=== PATIENT | male | born 1945 | race Caucasian/White ===

== ENCOUNTER → 2017-03-27 | Outpatient (CLI) | payer MEDICARE, OTHER ==
--- NOTE | 2017-03-27 08:31 | RAD ---
Indication: Cough and congestion. Time of exam 0824 hours. No prior studies are available for comparison. FINDINGS: The heart size is normal. The lungs are clear. No pleural effusion or pneumothorax is identified. The pulmonary vascularity is normal. IMPRESSION: No acute abnormality detected.
== END | disposition home or self-care (01) ==
LOC: PMG 08:02
PROVIDERS: ATTEND Physician Assistant Medical
DX: R05 Cough (principal); R09.89 Other specified symptoms and signs involving the circulatory and respiratory systems
CPT/HCPCS: 71020

== ENCOUNTER → 2017-05-17 | Outpatient (CLI) | payer MEDICARE, OTHER ==
--- NOTE | 2017-05-17 12:38 | RAD ---
Carotid ultrasound, 05/17/2017: History: Carotid stenosis Duplex evaluation of the carotid arteries in neck was performed including grayscale, color-flow and spectral Doppler analysis. There is mild intimal thickening and smooth plaquing at both carotid bifurcations. Minimal plaque calcification is noted. The peak systolic velocity in the right internal carotid artery is 134 cm/s with an end-diastolic velocity of 31 cm/s. The internal carotid to common carotid artery ratio is 1.0. These Doppler findings suggest narrowing in the 0-50% diameter range. The peak systolic velocity in left internal carotid artery is 90 cm/s with an end-diastolic velocity of 29 cm/s. The internal carotid to common carotid artery ratio on the left is 0.8. These Doppler findings also suggest narrowing in the 0-50% diameter range. Antegrade flow is present in both vertebral arteries in the neck. IMPRESSION: Mild atherosclerotic plaquing at both carotid bifurcations with underlying luminal narrowing in the 0-50% diameter range bilaterally. Note: Stenosis calculations for CTA, MRA and conventional angiography are based upon determination of the distal ICA diameter in accordance with the NASCET methodology. Stenosis calculations for Doppler studies are derived from validated velocity criteria which are known to correlate with NASCET methodology of determining stenosis.
== END | disposition home or self-care (01) ==
LOC: US 09:10
PROVIDERS: ATTEND Internal Medicine Cardiovascular Disease
DX: I65.23 Occlusion and stenosis of bilateral carotid arteries (principal); E78.00 Pure hypercholesterolemia, unspecified
CPT/HCPCS: 93880

== ENCOUNTER → 2019-04-14 | Outpatient (CLI) | payer MEDICARE, OTHER ==
[2019-04-14 10:34] LABS: ALBUMIN 4.1 g/dL (3.4-5.0); ALBUMIN/GLOBULIN RATIO 1.4 (1.0-1.7); CALCIUM 9.1 mg/dL (8.5-10.1); CREATININE 0.8 mg/dL (0.7-1.3); GFR 95.3; MAGNESIUM 2.1 mg/dL (1.8-2.4); POTASSIUM 4.4 mmol/L (3.5-5.1); TOTAL BILIRUBIN 1.4 mg/dL (0.2-1.0); TOTAL PROTEIN 7.1 g/dL (6.4-8.2)
== END | disposition home or self-care (01) ==
LOC: LAB 09:19
PROVIDERS: ATTEND Internal Medicine Cardiovascular Disease
DX: I49.3 Ventricular premature depolarization (principal); E78.00 Pure hypercholesterolemia, unspecified
CPT/HCPCS: 36415; 80053; 80061; 83735

== ENCOUNTER → 2019-07-21 | Outpatient (CLI) | payer MEDICARE, OTHER ==
[2019-07-21 11:19] LABS: ALBUMIN 4.1 g/dL (3.4-5.0); DIRECT BILIRUBIN 0.2 mg/dL (0.0-0.2); TOTAL BILIRUBIN 1.3 mg/dL (0.2-1.0)
== END | disposition home or self-care (01) ==
LOC: LAB 10:34
PROVIDERS: ATTEND Internal Medicine Cardiovascular Disease
DX: E78.00 Pure hypercholesterolemia, unspecified (principal)
CPT/HCPCS: 36415; 80061; 80076

== ENCOUNTER → 2019-11-21 | Outpatient (CLI) | payer MEDICARE, OTHER ==
[2019-11-21 10:30] LABS: ALBUMIN 4.1 g/dL (3.4-5.0); ALBUMIN/GLOBULIN RATIO 1.4 (1.0-1.7); CALCIUM 9.2 mg/dL (8.5-10.1); CREATININE 0.9 mg/dL (0.7-1.3); GFR 82.9; POTASSIUM 4.5 mmol/L (3.5-5.1); TOTAL BILIRUBIN 1.3 mg/dL (0.2-1.0); TOTAL PROTEIN 7.1 g/dL (6.4-8.2)
== END | disposition home or self-care (01) ==
LOC: LAB 08:47
PROVIDERS: ATTEND Internal Medicine Cardiovascular Disease
DX: I35.0 Nonrheumatic aortic (valve) stenosis (principal); E78.00 Pure hypercholesterolemia, unspecified
CPT/HCPCS: 80053; 80061; 83695

== ENCOUNTER 2020-05-03 17:30 | Inpatient (IN) | payer MEDICARE, OTHER ==
[~2020-05-03] VITALS: Ht 185.4 cm; Wt 87.0 kg
[2020-05-03] MEDS ORDERED: TAMS0.4C97 PO (18:26)
[2020-05-03] MEDS ORDERED: MULT-245 PO (18:26)
[2020-05-03] MEDS ORDERED: CHOL200044 PO (18:26)
[2020-05-03] MEDS ORDERED: ATOR40TA PO (18:26)
[2020-05-03] MEDS ORDERED: ASPI-630 PO (18:26)
[2020-05-03] MEDS ORDERED: DILT180T7 PO (18:26)
[2020-05-03] MEDS ORDERED: CYAN500T17 PO (18:26)
[2020-05-03] MEDS ORDERED: CARV6.25 PO (18:26)
[2020-05-03] MEDS ORDERED: CYCL-331 PO (18:26)
[2020-05-03] MEDS ORDERED: PSYL0.5215 PO (18:26)
[2020-05-03] MEDS ORDERED: FINA5TAB PO (18:26)
[2020-05-03 18:31] VITALS: BP 115/71
[2020-05-03 20:18] LABS: BASO # 0.1 x10^3/uL (0.0-0.2); BASO % 1 % (0-3); EOS # 0.1 x10^3/uL (0.0-0.7); EOS % 1 % (0-3); HEMATOCRIT 40.9 % (39.0-53.0); HEMOGLOBIN 13.7 g/dL (13.0-17.5); LYMPH % 8 % (24-48); MEAN CORPUSCULAR HEMOGLOBIN 30 pg (25-35); MEAN CORPUSCULAR HGB CONC 34 g/dL (31-37); MEAN CORPUSCULAR VOLUME 91 fL (79-100); MONO # 0.7 x10^3/uL (0.0-1.1); MONO % 5 % (0-9); NEUT # 10.9 x10^3uL (1.8-7.7); NEUT % 85 % (31-73); PLATELET COUNT 474 x10^3/uL (140-400); RED CELL DISTRIBUTION WIDTH 12.6 % (11.5-14.5); WHITE BLOOD COUNT 12.8 x10^3/uL (4.0-11.0)
[2020-05-03 20:34] LABS: ALBUMIN 2.7 g/dL (3.4-5.0); ALBUMIN/GLOBULIN RATIO 0.6 (1.0-1.7); CALCIUM 8.9 mg/dL (8.5-10.1); CREATININE 0.9 mg/dL (0.7-1.3); GFR 82.9; POTASSIUM 4.1 mmol/L (3.5-5.1); TOTAL BILIRUBIN 0.8 mg/dL (0.2-1.0)
[2020-05-03] MEDS: IPRATROPIUM/ALBUTEROL 20/100mcg/INH INHALER. INH SCH (20:42)
[2020-05-03 20:43] LABS: INFLUENZA A PATIENT NEGATIVE (NEGATIVE); INFLUENZA B PATIENT NEGATIVE (NEGATIVE)
[2020-05-03] MEDS: DEXAMETHASONE SOD PHOS 10 MG/ML VIAL. IV SCH (20:43)
[2020-05-03] MEDS: AZITHROMYCIN 500 MG in IV NORMAL SALINE 250ML 250 ML IV SCH (21:18)
[2020-05-03 22:40] VITALS: BP 121/70
[2020-05-04 03:05] VITALS: BP 128/78
[2020-05-04 05:50] VITALS: BP 120/73
[2020-05-04] MEDS: DEXAMETHASONE SOD PHOS 10 MG/ML VIAL. IV SCH ×2 (09:34→20:30)
[2020-05-04] MEDS: IPRATROPIUM/ALBUTEROL 20/100mcg/INH INHALER. INH SCH ×4 (09:34→20:00)
--- NOTE | 2020-05-04 09:37 | HP ---
ADMIT DATE: ATTENDING PHYSICIAN: Dr. Cortes. CHIEF COMPLAINT: Shortness of breath. HISTORY OF PRESENT ILLNESS: The patient is a 74-year-old gentleman, very active, comes in with weakness and shortness of breath. He was tested positive for coronavirus 11 days ago. Chest x-ray demonstrated chronic interstitial changes as well as new diffuse interstitial ground glass appearance in both bases. The patient is therefore admitted with suspected coronavirus pneumonia. Influenza A and B has been ordered too. This gentleman has been sick for the last 4 days. Not much appetite. No fevers, chills, cough. Just malaise, some myalgias, poor appetite. He had some dyspnea. No cough. However, by the time I saw him, his room air saturations were quite adequate. PAST MEDICAL HISTORY: Significant for gallbladder surgery. He had essential hypertension, hyperlipidemia and some prostatism. CURRENT MEDICATIONS: Include the following: Aspirin, Lipitor, Coreg, vitamin D3, B12, cyclobenzaprine, diltiazem 180, Proscar, multivitamin, and Flomax. ALLERGIES: He has no known drug allergies. SOCIAL HISTORY: Nonsmoker, nondrinker. SOCIAL HISTORY: He is retired. FAMILY HISTORY: Mom lived at age 97. Dad at age 71 of complications of drug-induced cirrhosis of liver from rheumatoid arthritis history. He is . 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 REVIEW OF SYSTEMS: Significant for the issues that brought him here. He has been fairly active. He was feeling a little better by the time I saw him the next day. All other systems reviewed and determined to be negative. PHYSICAL EXAMINATION: GENERAL: When I saw him, this is a pleasant, middle-aged gentleman. INITIAL VITAL SIGNS: Showed a blood pressure 120/73, pulse 88 and regular, temperature 97.9 degrees Fahrenheit, and his oxygen saturations were 94% on room air. HEENT: Head is without trauma. Pupils are reactive. Sclerae nonicteric. Oropharynx is clear. NECK: Supple, no bruits identified. LUNGS: Coarse rhonchi at the bases. CARDIOVASCULAR: Showed regular heart tones. No gallops. ABDOMEN: Soft, no guarding or rebound tenderness. EXTREMITIES: Showed no cyanosis or edema. NEUROLOGIC: Focally intact. Speech is fluent. 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 SKIN: Warm and dry. IMAGING: Chest x-ray as noted. PERTINENT LABORATORY STUDIES: The hemoglobin is 13.7 g/dL with a white count of 12,800. Electrolytes, BUN and creatinine all within normal range. Transaminases are slightly elevated with ALT of 221, AST of 64, bilirubin is normal. Nonfasting blood sugar 123 mg/dL, creatinine is 0.9 mg/dL. ASSESSMENT: 1. A 74-year-old gentleman with bilateral atypical pneumonia, both bases. 2. Interstitial lung disease. 3. Probable COVID-19 pneumonia infection. 4. Essential hypertension. 5. Hyperlipidemia. PLAN: 1. Admit to the inpatient unit. 2. Supplemental oxygen as needed. 3. Empiric intravenous antibiotics, Rocephin and Zithromax have been ordered. 4. Empiric Decadron. 5. Diet as tolerated. 6. Influenza A and B swab. 7. Repeat coronavirus swab. SRINIVAS CORTES MD DR: GEOVANNA/rene JOB#: [id number] / [id number] TAMMY Dias
[2020-05-04 10:51] VITALS: BP 128/77
[2020-05-04] MEDS ORDERED: LORA-627 PO (13:35)
[2020-05-04] MEDS ORDERED: ACET325T9 PO (13:35)
[2020-05-04] MEDS ORDERED: GUAI-108 PO (13:35)
[2020-05-04] MEDS: PSEUDOEPHEDRINE ER 120 MG TABLET.ER. PO SCH ×2 (14:00→20:32)
[2020-05-04] MEDS: ASPIRIN CHEWABLE 81 MG TABLET. PO SCH (14:22)
[2020-05-04] MEDS: MULTIVITAMIN with MINERAL TABLET. PO SCH (14:22)
[2020-05-04] MEDS: CETIRIZINE HCL 10 MG TABLET PO SCH (14:22)
[2020-05-04] MEDS: guaiFENesin DM 600/30MG 1 TAB TAB.ER.12H PO PRN (14:23)
[2020-05-04] MEDS: ACETAMINOPHEN 325 MG TABLET PO PRN (14:23)
[2020-05-04] MEDS: CHOLECALCIFEROL (VITAMIN D3) 1,000 UNIT TABLET PO SCH (14:23)
[2020-05-04] MEDS: CYANOCOBALAMIN (VITAMIN B-12) 1,000 MCG TABLET. PO SCH (14:23)
[2020-05-04 15:51] VITALS: BP 124/69
[2020-05-04 20:25] VITALS: BP 133/78
[2020-05-04] MEDS: FINASTERIDE 5 MG TABLET. PO SCH (20:30)
[2020-05-04] MEDS: AZITHROMYCIN 500 MG in IV NORMAL SALINE 250ML 250 ML IV SCH (20:30)
[2020-05-04] MEDS: ATORVASTATIN CALCIUM 20 MG TABLET PO SCH (20:30)
[2020-05-04] MEDS: TAMSULOSIN 0.4 MG CAP.ER.24H. PO SCH (20:30)
[2020-05-04] MEDS: PSYLLIUM SEED (WITH SUGAR) PACKET. PO SCH (20:32)
[2020-05-04 22:30] VITALS: BP 115/74
[2020-05-05 00:14] VITALS: BP 115/74
[2020-05-05 06:04] VITALS: BP 122/74
[2020-05-05 06:16] LABS: BASO % 0 % (0-3); EOS % 0 % (0-3); HEMATOCRIT 38.3 % (39.0-53.0); LYMPH # 1.1 x10^3/uL (1.0-4.8); LYMPH % 7 % (24-48); MEAN CORPUSCULAR HEMOGLOBIN 30 pg (25-35); MEAN CORPUSCULAR HGB CONC 34 g/dL (31-37); MEAN CORPUSCULAR VOLUME 89 fL (79-100); MONO # 0.5 x10^3/uL (0.0-1.1); MONO % 3 % (0-9); NEUT % 90 % (31-73); PLATELET COUNT 407 x10^3/uL (140-400); RED BLOOD COUNT 4.28 x10^6/uL (4.30-5.70); RED CELL DISTRIBUTION WIDTH 13.2 % (11.5-14.5); WHITE BLOOD COUNT 16.6 x10^3/uL (4.0-11.0)
[2020-05-05 06:32] LABS: ALBUMIN 2.7 g/dL (3.4-5.0); ALBUMIN/GLOBULIN RATIO 0.7 (1.0-1.7); CALCIUM 8.8 mg/dL (8.5-10.1); CREATININE 0.9 mg/dL (0.7-1.3); GFR 82.9; POTASSIUM 4.5 mmol/L (3.5-5.1); TOTAL BILIRUBIN 0.5 mg/dL (0.2-1.0); TOTAL PROTEIN 6.8 g/dL (6.4-8.2)
[2020-05-05 06:48] LABS: % LYMPHS 5 % (24-48); % MONOS 4 % (0-10); % SEGS 91 % (35-66)
[2020-05-05 06:51] LABS: PLT ESTIMATE INCREASED (ADEQUATE); TOXIC GRANULATION PRESENT; TOXIC VACUOLATION PRESENT
--- NOTE | 2020-05-05 07:10 | RAD ---
XR CHEST 1V Clinical Indication: Reason: increased SOA covid related / Comparison: Two-view chest, 2 days ago. Findings: The cardiomediastinal silhouette is normal. Relatively diffuse interstitial and alveolar opacities in the lungs are unchanged. There is no pneumothorax. No pleural effusion is appreciated. No acute bone abnormality. IMPRESSION: Bilateral infiltrates are unchanged. Electronically signed by: Adan Hood MD (05/05/2020 7:08 AM) [facility]
[2020-05-05] MEDS: CETIRIZINE HCL 10 MG TABLET PO SCH (08:31)
[2020-05-05] MEDS: IPRATROPIUM/ALBUTEROL 20/100mcg/INH INHALER. INH SCH ×4 (08:31→20:00)
[2020-05-05] MEDS: DEXAMETHASONE SOD PHOS 10 MG/ML VIAL. IV SCH ×2 (08:31→20:53)
[2020-05-05] MEDS: CHOLECALCIFEROL (VITAMIN D3) 1,000 UNIT TABLET PO SCH (08:31)
[2020-05-05] MEDS: CYANOCOBALAMIN (VITAMIN B-12) 1,000 MCG TABLET. PO SCH (08:32)
[2020-05-05] MEDS: PSYLLIUM SEED (WITH SUGAR) PACKET. PO SCH ×2 (08:32→20:52)
[2020-05-05] MEDS: ASPIRIN CHEWABLE 81 MG TABLET. PO SCH (08:32)
[2020-05-05] MEDS: MULTIVITAMIN with MINERAL TABLET. PO SCH (08:32)
[2020-05-05] MEDS: PSEUDOEPHEDRINE ER 120 MG TABLET.ER. PO SCH ×2 (08:33→20:53)
[2020-05-05] MEDS: LACTOBACILLUS RHAMNOSUS GG 1 CAPSULE. PO SCH ×2 (09:00→20:52)
[2020-05-05 11:00] VITALS: BP 146/79
[2020-05-05 17:12] VITALS: BP 138/77
--- NOTE | 2020-05-05 17:44 | PN ---
DATE: 05/05/2020 SUBJECTIVE: The patient is a 74-year-old male patient who was admitted with shortness of breath. He apparently tested positive for coronavirus 12 days ago and his x-ray demonstrated chronic interstitial changes as well as new diffuse interstitial ground glass appearance in both bases and therefore was admitted for suspected coronavirus pneumonia, influenza A and B has been ordered too. Apparently, his influenza A and B were negative and his coronavirus by PCR was not detectable. He was started on IV antibiotic in the form of Rocephin and Zithromax as well as dexamethasone and when I saw him today, he was continued to complain of shortness of breath. He was unable to finish sentences and has to pause for every now and then and clearly short of breath, has also cough with whitish sputum with streaks of blood. Denied any chest pain. PHYSICAL EXAMINATION: GENERAL: When I saw him this afternoon, he looked well, slightly pale, no jaundice, cyanosis or thyromegaly. No jugular venous distention or limb edema. VITAL SIGNS: Her heart rate was 107, blood pressure was 146/79, temperature was 99.4, respiratory rate 20, and oxygen saturation was 94% on room air. HEAD, EYES, EARS, NOSE AND THROAT: Showed normocephalic, atraumatic. NECK: Supple. HEART: Normal first and second heart sounds with harsh ejection systolic murmur best heard in the second right intercostal space, radiating to both carotids. CHEST: Shows central trachea, equal bilateral expansion, air entry, vesicular breath sounds. I could not really appreciate any crepitation or rhonchi. ABDOMEN: Slightly distended, soft, nontender. NEUROLOGIC: He is awake, alert, responding appropriately. All cranial nerves are intact. He moves extremities without difficulty, ambulates without assistance or assistive devices. His intake over the last 24 hours was 940, no output was recorded. LABORATORY DATA: His lab work this morning showed white cell count of 16,600, hemoglobin 13, hematocrit 38, MCV 89 and platelet count of 407,000 with a manual differential showed 90% polymorphs, 7% lymphocytes and 3% monocytes. Serum sodium was 137, potassium 4.5, chloride 104, bicarbonate 24, anion gap of 9, BUN 17, creatinine 0.9, estimated GFR was 83 mL per minute. His glucose was 152, calcium was 8.8. Total bilirubin and alkaline phosphatase is normal. AST, ALT slightly elevated, but trending down. His total protein was 6.8, albumin was 2.7. His chest x-ray showed the cardiomediastinal silhouette is normal relatively diffuse interstitial and alveolar opacities in lungs that are unchanged. There is no pneumothorax, no pleural effusion is appreciated, no acute bony abnormality. ASSESSMENT: 1. COVID pneumonia. 2. Bilateral atypical pneumonia. 3. Chronic interstitial lung disease. 4. Hypertension. 5. Hyperlipidemia. PLAN: To continue with IV antibiotic in the form of Rocephin and Zithromax, continue with Decadron. We will obviously start him on oxygen supplementation as needed. Meanwhile, we will continue with his tamsulosin and finasteride for benign prostatic hypertrophy and diltiazem for hypertension. The patient is known to have aortic valve disease followed by Dr. Gardner. The patient seems to be short of breath. I will repeat his lab works including a D-dimer and BMP. 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 The patient does not seem to be hypoxic at rest, but he definitely has short of breath more than usual according to him, it is clearly he is unable to finish sentences, which according to him this not his usual state of health. RADHA OLIVEROS MD DR: BOLA/rene JOB#: [id number] / [id number]
[2020-05-05 20:40] VITALS: BP 138/75
[2020-05-05] MEDS: TAMSULOSIN 0.4 MG CAP.ER.24H. PO SCH (20:52)
[2020-05-05] MEDS: FINASTERIDE 5 MG TABLET. PO SCH (20:52)
[2020-05-05] MEDS: ATORVASTATIN CALCIUM 20 MG TABLET PO SCH (20:52)
[2020-05-05] MEDS: ACETAMINOPHEN 325 MG TABLET PO PRN (20:53)
[2020-05-05] MEDS: AZITHROMYCIN 500 MG in IV NORMAL SALINE 250ML 250 ML IV SCH (22:15)
[2020-05-05] MEDS: diphenhydrAMINE HCL 25 MG CAPSULE PO PRN (23:30)
[2020-05-06 06:13] VITALS: BP 127/68
[2020-05-06 06:49] LABS: ALBUMIN 2.6 g/dL (3.4-5.0); ALBUMIN/GLOBULIN RATIO 0.7 (1.0-1.7); CALCIUM 8.7 mg/dL (8.5-10.1); CREATININE 0.9 mg/dL (0.7-1.3); GFR 82.9; POTASSIUM 4.8 mmol/L (3.5-5.1); TOTAL BILIRUBIN 0.5 mg/dL (0.2-1.0); TOTAL PROTEIN 6.4 g/dL (6.4-8.2)
[2020-05-06] MEDS: IPRATROPIUM/ALBUTEROL 20/100mcg/INH INHALER. INH SCH ×4 (08:00→20:00)
--- NOTE | 2020-05-06 08:30 | PDOC2 ---
CARDIAC CONSULT DATE OF CONSULT DOS: DATE: 05/06/20 TIME: 08:23 REASON FOR CONSULT Reason for Consult Chronic CHF REFERRING PHYSICIAN Referring Physician Dr. Shook SOURCE Source: Chart review, Patient HPI History of Present Illness This is a 74 yo male who presented secondary to weakness, shortness of breath and elevated heart rate. Patient tested positives for COVID 11 days prior to arrival. He has been more weak and decreased appetite for the last 4 days. Also having some myalgias and shortness of breath. Does have a history of atrial stenosis and "irregular heart beat", which prompted this consult. Denies any history of AFIB and reports he has "been checked for that". Follows closely with Dr. Gardner, [facility]. Reports having echocardiogram this past March. He denies any chest pain, palpitations, diaphoresis, or nausea/v omiting. Reports breathing has improved and he is feeling better since admission. PAST MEDICAL HISTORY Cardiovascular: HTN, aortic stenosis Renal/: Other (urinary retention ) PAST SURGICAL HISTORY Past Surgical History: No pertinent history FAMILY HISTORY Family History: Hypertension, Other (renal disease ) SOCIAL HISTORY Smoke: No ALCOHOL: none Drugs: None Lives: with Family CURRENT MEDICATIONS Current Medications Current Medications Albuterol/ Ipratropium (Combivent Respimat 20-100 Mcg) 1 puff RTQID INH Last administered on 05/05/20at 20:00; Start 05/03/20 at 20:00 Ceftriaxone Sodium 1 gm/ Sodium Chloride 50 ml @ 100 mls/hr Q24H IV Last administered on 05/05/20at 20:52; Start 05/03/20 at 20:00 Azithromycin 500 mg/Sodium Chloride 250 ml @ 250 mls/hr Q24H IV Last administered on 05/05/20at 22:15; Start 05/03/20 at 21:00 Dexamethasone Sodium Phosphate (Decadron) 6 mg BID IV Last administered on 05/05/20at 20:53; Start 05/03/20 at 21:00 Diltiazem HCl (Diltiazem 24hr Cd) 300 mg 1X ONCE PO Last administered on 05/04/20at 09:34; Start 05/04/20 at 09:00; Stop 05/04/20 at 09:09; Status DC Aspirin (Aspirin Chewable) 81 mg DAILY PO Last administered on 05/05/20at 08:32; Start 05/04/20 at 14:00 Finasteride (Proscar) 5 mg HS PO Last administered on 05/05/20 20:52; Start 05/04/20 at 21:00 Tamsulosin HCl (Flomax) 0.4 mg HS PO Last administered on 05/05/20 20:52; St art 05/04/20 at 21:00 Atorvastatin Calcium (Lipitor) 40 mg QHS PO Last administered on 05/05/20 20:52; Start 05/04/20 at 21:00 Vitamin D (Vitamin D3) 2,000 unit DAILY PO Last administered on 05/05/20 08:31; Start 05/04/20 at 14:00 Cyanocobalamin (Vitamin B-12) 500 mcg DAILY PO Last administered on 05/05/20 08:32; Start 05/04/20 at 14:00 Diltiazem HCl (Cardizem 24hr Cd) 180 mg DAILY PO Last administered on 05/05/20 08:32; Start 05/04/20 at 14:00 Multivitamins/ Calcium (Thera-M Plus) 1 tab DAILY PO Last administered on 05/05/20 08:32; Start 05/04/20 at 14:00 Psyllium Hydrophilic Mucilloid (Metamucil) 1 pkt BID PO Last administered on 05/05/20 20:52; Start 05/04/20 at 21:00 Acetaminophen (Tylenol) 1,000 mg PRN Q6HRS PRN PO PAIN Last administered on 05/05/20 20:53; Start 05/04/20 at 14:00 Guaifenesin (MUCINEX ER with DM) 1 tab PRN BID PRN PO cough and congestion Last administered on 05/04/20at 14:23; Start 05/04/20 at 14:00 Cetirizine HCl (ZyrTEC) 10 mg DAILY PO Last administered on 05/05/20 08:31; Start 05/04/20 at 14:00 Pseudoephedrine HCl (Sudafed 12-Hour) 120 mg BID PO Last administered on 05/05/20 20:53; Start 05/04/20 at 14:00 Lactobacillus Rhamnosus (Culturelle) 1 cap BID PO Last administered on 05/05/20at 20:52; Start 05/05/20 at 09:00 Diphenhydramine HCl (Benadryl) 25 mg PRN QHS PRN PO INSOMNIA Last administered on 05/05/20at 23:30; Start 05/05/20 at 21:15 Active Scripts Active Reported Mucinex Dm Er 600-30 Mg Tablet (Guaifenesin/Dextromethorphan) 1 Each Tab.er.12h 1 Tab PO PRN BID PRN 14 Days Tylenol (Acetaminophen) 325 Mg Tablet 1,000 Mg PO PRN Q6HRS PRN Claritin-D 24 Hour Tablet (Loratadine/Pseudoephedrine) 1 Each Tab.er.24h 1 Tab PO DAILY 10 Days Coreg (Carvedilol) 6.25 Mg Tablet 6.25 Mg PO BIDWMEALS Lipitor (Atorvastatin Calcium) 40 Mg Tablet 40 Mg PO QHS Aspirin 81 Mg Tab.chew 81 Mg PO DAILY D3-2000 (Cholecalciferol (Vitamin D3)) 50 Mcg Capsule 50 Mcg PO DAILY Diltiazem 24Hr ER (Diltiazem HCl) 180 Mg Tab.er.24h 180 Mg PO DAILY Metamucil (Psyllium Husk) 0.52 Gm Capsule 0.52 Gm PO BID Multi Vitamin Daily (Multivitamin) 1 Each Tablet 1 Each PO DAILY Flomax (Tamsulosin Hcl) 0.4 Mg Cap.er.24h 0.4 Mg PO DAILY Proscar (Finasteride) 5 Mg Tablet 5 Mg PO DAILY B-12 (Cyanocobalamin (Vitamin B-12)) 500 Mcg Tablet 500 Mcg PO DAILY Cyclobenzaprine Hcl 10 Mg Tablet 10 Mg PO TID PRN PRN ALLERGIES Allergies: Coded Allergies: No Known Drug Allergies (Unverified , 05/03/20) ROS Review of Systems 14 point ROS conducted with pertinent positives noted above in hPi PHYSICAL EXAM General: Alert, Oriented X3, Cooperative, No acute distress HEENT: Atraumatic, Mucous membr. moist/pink Lungs: Other (on NC) Heart: Regular rate, Other (2/6 systolic murmur ) Abdomen: Soft Extremities: Normal pulses Skin: No breakdown Neuro: Normal speech, Sensation intact Psych/Mental Status: Mental status NL, Mood NL MUSCULOSKELETAL: Osteoarthritic changes both hands VITALS Vital Signs Vital Signs Date Time Temp Pulse Resp B/P (MAP) Pulse Ox O2 Delivery O2 Flow Rate FiO2 05/06/20 06:13 97.5 87 22 127/68 (87) 86 Room Air 05/05/20 06:08 2.0 LABS LABS Laboratory Tests Test 05/05/20 05:55 05/05/20 05:59 05/05/20 13:17 05/06/20 06:01 Sodium Level 137 mmol/L (136-145) 136 mmol/L (136-145) Potassium Level 4.5 mmol/L (3.5-5.1) 4.8 mmol/L (3.5-5.1) Chloride Level 104 mmol/L (98-107) 104 mmol/L (98-107) Carbon Dioxide Level 24 mmol/L (21-32) 23 mmol/L (21-32) Anion Gap 9 (6-14) 9 (6-14) Blood Urea Nitrogen 17 mg/dL (8-26) 20 mg/dL (8-26) Creatinine 0.9 mg/dL (0.7-1.3) 0.9 mg/dL (0.7-1.3) Estimated GFR (Cockcroft-Gault) 82.9 82.9 BUN/Creatinine Ratio 19 (6-20) 22 (6-20) Glucose Level 152 mg/dL (70-99) 136 mg/dL (70-99) Calcium Level 8.8 mg/dL (8.5-10.1) 8.7 mg/dL (8.5-10.1) Total Bilirubin 0.5 mg/dL (0.2-1.0) 0.5 mg/dL (0.2-1.0) Aspartate Amino Transf (AST/SGOT) 41 U/L (15-37) 42 U/L (15-37) Alanine Aminotransferase (ALT/SGPT) 188 U/L (16-63) 187 U/L (16-63) Alkaline Phosphatase 85 U/L (46-116) 78 U/L (46-116) Total Protein 6.8 g/dL (6.4-8.2) 6.4 g/dL (6.4-8.2) Albumin 2.7 g/dL (3.4-5.0) 2.6 g/dL (3.4-5.0) Albumin/Globulin Ratio 0.7 (1.0-1.7) 0.7 (1.0-1.7) White Blood Count 16.6 x10^3/uL (4.0-11.0) Red Blood Count 4.28 x10^6/uL (4.30-5.70) Hemoglobin 13.0 g/dL (13.0-17.5) Hematocrit 38.3 % (39.0-53.0) Mean Corpuscular Volume 89 fL (79-100) Mean Corpuscular Hemoglobin 30 pg (25-35) Mean Corpuscular Hemoglobin Concent 34 g/dL (31-37) Red Cell Distribution Width 13.2 % (11.5-14.5) Platelet Count 407 x10^3/uL (140-400) Neutrophils (%) (Auto) 90 % (31-73) Lymphocytes (%) (Auto) 7 % (24-48) Monocytes (%) (Auto) 3 % (0-9) Eosinophils (%) (Auto) 0 % (0-3) Basophils (%) (Auto) 0 % (0-3) Neutrophils # (Auto) 15.0 x10^3uL (1.8-7.7) Lymphocytes # (Auto) 1.1 x10^3/uL (1.0-4.8) Monocytes # (Auto) 0.5 x10^3/uL (0.0-1.1) Eosinophils # (Auto) 0.0 x10^3/uL (0.0-0.7) Basophils # (Auto) 0.0 x10^3/uL (0.0-0.2) Segmented Neutrophils % 91 % (35-66) Lymphocytes % 5 % (24-48) Monocytes % 4 % (0-10) Toxic Granulation Present Toxic Vacuolation Present Platelet Estimate Increased (ADEQUATE) D-Dimer (Gillian) 0.69 mg/L (0.00-0.50) VY-Hos-U-Type Natriuretic Peptide 90 pg/mL (0-124) ASSESSMENT/PLAN Assessment/Plan 1. Acute respiratory failure with COVID PNA. CXR with bilateral infiltrates. NT Pro BNP 90. Doubt overt HF 2. Hypertension; controlled 3. Hyperlipidemia 4. H/o of ; Follows with Dr. Gardner with [facility] cardiology 5. H/o possible arrhythmia; unclear. Patient denies any history of AFIB. Is on Cardizem for rate control. Has been SR/ST since admission. Sinus tachycardia would be expected in the setting of COVID PNA. Presently SR. Recommendations Continue Cardizem for rate control ASA therapy Ongoing lung optimization, treatment of COVID PNA Supportive care Outpatient echo when recovered from COVID Follow up with Dr. Gardner upon discharge. LEAH PARR APRN May 06, 2020 08:30
[2020-05-06] MEDS: MULTIVITAMIN with MINERAL TABLET. PO SCH (09:00)
[2020-05-06] MEDS: ASPIRIN CHEWABLE 81 MG TABLET. PO SCH (10:06)
[2020-05-06] MEDS: CYANOCOBALAMIN (VITAMIN B-12) 1,000 MCG TABLET. PO SCH (10:07)
[2020-05-06] MEDS: CHOLECALCIFEROL (VITAMIN D3) 1,000 UNIT TABLET PO SCH (10:07)
[2020-05-06] MEDS: CETIRIZINE HCL 10 MG TABLET PO SCH (10:07)
[2020-05-06] MEDS: PSEUDOEPHEDRINE ER 120 MG TABLET.ER. PO SCH ×2 (10:08→20:47)
[2020-05-06] MEDS: DEXAMETHASONE SOD PHOS 10 MG/ML VIAL. IV SCH ×2 (10:09→20:47)
[2020-05-06] MEDS: PSYLLIUM SEED (WITH SUGAR) PACKET. PO SCH ×2 (10:11→20:47)
[2020-05-06] MEDS: LACTOBACILLUS RHAMNOSUS GG 1 CAPSULE. PO SCH ×2 (10:11→20:47)
[2020-05-06] MEDS: guaiFENesin DM 600/30MG 1 TAB TAB.ER.12H PO PRN (10:11)
[2020-05-06] MEDS: ACETAMINOPHEN 325 MG TABLET PO PRN (10:13)
[2020-05-06 10:32] VITALS: BP 127/73
--- NOTE | 2020-05-06 14:46 | RAD ---
EXAM: CHEST ONE VIEW. HISTORY: Increasing hypoxia. COMPARISON: 05/05/2020. FINDINGS: A frontal view of the chest is obtained. Bilateral peripheral predominant interstitial and airspace opacities have increased mildly since 04/10. There is no pneumothorax or pleural effusion. The heart is not enlarged. There are atheroscle rotic calcifications of the aorta. IMPRESSION: 1. Bilateral multifocal infiltrates are slightly improved since the prior study. Electronically signed by: Taylor Monzon MD (05/06/2020 2:44 PM) [id number]
[2020-05-06 15:27] VITALS: BP 122/68
--- NOTE | 2020-05-06 17:36 | PN ---
DATE: 05/06/2020 SUBJECTIVE: The patient is resting, slightly propped up in bed, in no apparent distress. He continued to have somewhat short of breath, unable to finish sentence. He also desaturates on exertion and this morning, he went to have a shower and his oxygen saturation dropped down to 88%. His cough seemed to be more productive with clear sputum. He used to have some tinged blood before. Denied any chest pain. PHYSICAL EXAMINATION: GENERAL: When I examined him, he looked well. There was no pallor, jaundice, cyanosis or thyromegaly. No jugular venous distention. No lower limb edema. VITAL SIGNS: Her heart rate was 82, blood pressure was 122/68, temperature was 97.8, respiratory rate 20, and oxygen saturation was 93% on room air. HEAD, EYES, EARS, NOTE AND THROAT: Showed normocephalic, atraumatic. NECK: Supple. HEART: Normal first and second heart sounds. No gallop or murmur. CHEST: Shows central trachea, equal bilateral expansion, air entry, vesicular sounds. I could not really appreciate any crepitation or rhonchi. ABDOMEN: Slightly distended, soft, nontender. NEUROLOGIC: He was grossly intact. His intake was 1620. No output was recorded. LABORATORY DATA: His lab work this morning showed, his serum sodium to be 136, potassium 4.8, chloride 104, bicarbonate 23, anion gap of 9, BUN 20, creatinine was 0.9, estimated GFR was 82 mL per minute. His glucose 136, calcium was 8.7. Total bilirubin and alkaline phosphatase is normal. AST, ALT slightly elevated. His beta natriuretic peptide was only 90. Total protein was 6.4, albumin was 2.6. His coronavirus PCR was positive on 04/19; however, it was undetectable on 05/03. His influenza A and B were negative. So far, all his blood cultures are negative. A repeat chest x-ray today showed that the patient has bilateral peripheral predominant interstitial and airspace opacities that have increased mildly since 05/05. There is no pneumothorax or pleural effusion. The heart is not enlarged. There is atherosclerotic calcification of the aorta. ASSESSMENT: 1. COVID pneumonia. 2. Bilateral atypical pneumonia. 3. Chronic interstitial lung disease. 4. Hypertension. 5. Hyperlipidemia. PLAN: My plan is to continue with IV antibiotic. Continue with Decadron. Continue with finasteride and tamsulosin for his benign prostatic hypertrophy, diltiazem for hypertension. 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 My plan is to arrange for him to have a CT angio of the chest. I will repeat all his lab work including CBC, CMP, D-dimer and C-reactive protein and decide on further management accordingly. 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 Whether he has chronic interstitial lung disease due to organic and nonorganic dust is something obviously difficult to know. RADHA OLIVEROS MD DR: BOLA/rene JOB#: [id number] / [id number]
[2020-05-06] MEDS ORDERED: IOHEXOL 350 MG/ML 100 ML VIAL. IV ONE (18:00)
[2020-05-06 18:37] VITALS: BP 129/75
--- NOTE | 2020-05-06 19:12 | RAD ---
CT angiogram of the chest with contrast: Reason for examination: Worsening shortness of breath and hypoxia. Helical images were obtained through the chest with intravenous administration 100 cc Omnipaque 350 u sing PE protocol. 3-D MIPS reconstruction was performed in sagittal and coronal planes. Exposure: One or more of the following individualized dose reduction techniques were utilized for thi s examination: 1. Automated exposure control 2. Adjustment of the mA and/or kV according to patient size 3. Use of iterative reconstruction technique. No abnormality seen at the thyroid gland. The trachea and mainstem bronchi show no intraluminal lesio ns. No abnormality seen at the esophagus. The thoracic aorta shows no aneurysmal dilatation or dissec tion. The heart size is normal with no pericardial effusion. A few small lymph nodes are seen in the mediastinum which are probably reactive. No pulmonary emboli are identified. The lung lang however show diffuse patchy interstitial and alveolar opacities which are predominantly peripheral location. No pleural effusions are seen. There is no pneumothorax. No acute bony abnormalities are seen. There are hypertrophic changes in the spine. There is a striated appearance to the T9 vertebral body sugges tion a hemangioma. No acute bony abnormalities are seen. There is a tiny hypodense lesion in the left lobe of the liver measuring 6 mm in size which has benig n appearance and may represent a small cyst or hemangioma. No abnormality seen at the spleen, adrenal glands or pancreas. The gallbladder is surgically absent. IMPRESSION: No evidence of pulmonary embolus. Diffuse bilateral interstitial and alveolar opacities. Pneumonia is suspected. Small 6 mm hypodense lesion in the left lobe liver which may represent a small cyst or hemangioma. Striated bone changes in the T9 vertebral body consistent with a hemangioma. Electronically signed by: Terese Grayson MD (05/06/2020 7:09 PM) [id number]
[2020-05-06] MEDS: FINASTERIDE 5 MG TABLET. PO SCH (20:47)
[2020-05-06] MEDS: TAMSULOSIN 0.4 MG CAP.ER.24H. PO SCH (20:47)
[2020-05-06] MEDS: ATORVASTATIN CALCIUM 20 MG TABLET PO SCH (20:47)
[2020-05-06] MEDS: AZITHROMYCIN 500 MG in IV NORMAL SALINE 250ML 250 ML IV SCH ×2 (21:47→21:57)
[2020-05-06 22:53] VITALS: BP 128/75
[2020-05-07 06:17] VITALS: BP 128/75
[2020-05-07 06:29] LABS: ALBUMIN 2.6 g/dL (3.4-5.0); ALBUMIN/GLOBULIN RATIO 0.7 (1.0-1.7); C REACTIVE PROTEIN 2.1 mg/L (0-3.3); CALCIUM 8.7 mg/dL (8.5-10.1); CREATININE 0.9 mg/dL (0.7-1.3); GFR 82.9; POTASSIUM 4.8 mmol/L (3.5-5.1); TOTAL BILIRUBIN 0.6 mg/dL (0.2-1.0); TOTAL PROTEIN 6.6 g/dL (6.4-8.2)
[2020-05-07 07:39] LABS: HEMATOCRIT 38.5 % (39.0-53.0); HEMOGLOBIN 12.8 g/dL (13.0-17.5); RED BLOOD COUNT 4.21 x10^6/uL (4.30-5.70); RED CELL DISTRIBUTION WIDTH 13.1 % (11.5-14.5); WHITE BLOOD COUNT 14.9 x10^3/uL (4.0-11.0)
[2020-05-07] MEDS: IPRATROPIUM/ALBUTEROL 20/100mcg/INH INHALER. INH SCH ×4 (08:38→20:00)
[2020-05-07] MEDS: PSYLLIUM SEED (WITH SUGAR) PACKET. PO SCH ×2 (08:38→21:12)
[2020-05-07] MEDS: LACTOBACILLUS RHAMNOSUS GG 1 CAPSULE. PO SCH ×2 (08:39→21:11)
[2020-05-07] MEDS: PSEUDOEPHEDRINE ER 120 MG TABLET.ER. PO SCH ×2 (08:39→21:00)
[2020-05-07] MEDS: MULTIVITAMIN with MINERAL TABLET. PO SCH (08:39)
[2020-05-07] MEDS: CETIRIZINE HCL 10 MG TABLET PO SCH (08:39)
[2020-05-07] MEDS: ASPIRIN CHEWABLE 81 MG TABLET. PO SCH (08:40)
[2020-05-07] MEDS: CHOLECALCIFEROL (VITAMIN D3) 1,000 UNIT TABLET PO SCH (08:40)
[2020-05-07] MEDS: CYANOCOBALAMIN (VITAMIN B-12) 1,000 MCG TABLET. PO SCH (08:40)
[2020-05-07] MEDS: DEXAMETHASONE SOD PHOS 10 MG/ML VIAL. IV SCH ×2 (08:41→21:11)
[2020-05-07] MEDS: guaiFENesin DM 600/30MG 1 TAB TAB.ER.12H PO PRN (08:46)
[2020-05-07 10:36] VITALS: BP 128/73
[2020-05-07 14:41] VITALS: BP 120/70
--- NOTE | 2020-05-07 18:07 | PN ---
DATE: 05/07/2020 SUBJECTIVE: The patient continues to be short of breath, unable to complete sentences and he also desaturates on exertion, but did have cough with scanty whitish sputum. Denied any chills, rigors or fever. PHYSICAL EXAMINATION: GENERAL: When I examined him, he looked well and was clearly in no apparent respiratory distress. No pallor, jaundice, cyanosis, or thyromegaly. No jugular venous distension. No lower limb edema. VITAL SIGNS: Her heart rate was 98, blood pressure was 120/70, temperature was 99.8, respiratory rate was 20, and oxygen saturation was 93% on 2 liters of oxygen. HEAD, EYES, EARS, NOSE AND THROAT: Showed normocephalic, atraumatic. NECK: Supple. HEART: Showed normal first and second heart sounds. No gallop or murmur. CHEST: Clear to auscultation. No crepitation or rhonchi. ABDOMEN: Distended, soft, nontender. NEUROLOGIC: He is awake, alert, responding appropriately. All cranial nerves are intact. He moves extremities without difficulty. His intake over the last 24 hours was 2075. LABORATORY DATA: His lab work showed a white cell count of 14,900; hemoglobin 12.8; hematocrit 38.5; MCV 91; and platelet count of 404,000. Her chemistry showed a serum sodium 137, potassium 4.8, chloride 103, bicarbonate 24, anion gap of 10, BUN 22, creatinine 0.9, estimated GFR was 83 mL per minute, his glucose 138, calcium was 8.7. Total bilirubin and alkaline phosphatase normal. AST, ALT slightly elevated, fluctuating. His total protein was 6.8, albumin was 2.6. His D-dimer is down slightly to 0.64 and his coronavirus PCR was not detectable. His influenza A and B were negative. ASSESSMENT: 1. Recent COVID pneumonia with possible lung injury. 2. Bilateral atypical pneumonia. 3. Chronic interstitial lung disease. 4. Hypertension. 5. Hyperlipidemia. PLAN: To continue with antibiotic. Continue with steroids. Continue with DVT prophylaxis. I will continue with tamsulosin and finasteride for benign prostatic hypertrophy. He has marked sinus tachycardia, probably related to his bronchodilator and pseudoephedrine. I will see if we can discontinue pseudoephedrine and see how he does without it. RADHA OLIVEROS MD DR: Ana JOB#: [id number] / [id number]
[2020-05-07 19:00] VITALS: BP 145/80
[2020-05-07] MEDS: ENOXAPARIN 40 MG/0.4 ML SYRINGE. SQ SCH (20:13)
[2020-05-07] MEDS: TAMSULOSIN 0.4 MG CAP.ER.24H. PO SCH (21:12)
[2020-05-07] MEDS: ATORVASTATIN CALCIUM 20 MG TABLET PO SCH (21:12)
[2020-05-07] MEDS: FINASTERIDE 5 MG TABLET. PO SCH (21:12)
[2020-05-07] MEDS: AZITHROMYCIN 500 MG in IV NORMAL SALINE 250ML 250 ML IV SCH (21:13)
[2020-05-07] MEDS: diphenhydrAMINE HCL 25 MG CAPSULE PO PRN (22:53)
[2020-05-07 23:30] VITALS: BP 119/74
[2020-05-08 06:48] VITALS: BP 115/69
[2020-05-08] MEDS: CETIRIZINE HCL 10 MG TABLET PO SCH (08:06)
[2020-05-08] MEDS: CYANOCOBALAMIN (VITAMIN B-12) 1,000 MCG TABLET. PO SCH (08:08)
[2020-05-08] MEDS: MULTIVITAMIN with MINERAL TABLET. PO SCH (08:08)
[2020-05-08] MEDS: CHOLECALCIFEROL (VITAMIN D3) 1,000 UNIT TABLET PO SCH (08:08)
[2020-05-08] MEDS: ASPIRIN CHEWABLE 81 MG TABLET. PO SCH (08:08)
[2020-05-08] MEDS: DEXAMETHASONE SOD PHOS 10 MG/ML VIAL. IV SCH ×2 (08:21→22:12)
[2020-05-08] MEDS: PSYLLIUM SEED (WITH SUGAR) PACKET. PO SCH ×2 (08:21→22:13)
[2020-05-08] MEDS: LACTOBACILLUS RHAMNOSUS GG 1 CAPSULE. PO SCH ×2 (08:22→22:11)
[2020-05-08] MEDS: PSEUDOEPHEDRINE ER 120 MG TABLET.ER. PO SCH (08:22)
[2020-05-08] MEDS: IPRATROPIUM/ALBUTEROL 20/100mcg/INH INHALER. INH SCH ×4 (10:29→20:00)
[2020-05-08 11:30] VITALS: BP 141/75
--- NOTE | 2020-05-08 16:29 | PN ---
DATE: 05/08/2020 SUBJECTIVE: The patient continued to complain of shortness of breath. Sometimes he ____ to finish a sentence, continued to saturate down to 82% on exertion and while on room air, noted to have cough with scanty whitish sputum. PHYSICAL EXAMINATION: GENERAL: When I examined him, he looked somewhat pale, but no jaundice, cyanosis or thyromegaly. No jugular venous distention. No limb edema. VITAL SIGNS: His heart rate was 76, blood pressure was 115/69, temperature was 97.7, respiratory rate 20, and oxygen saturation was 94% on 2 liters of oxygen. HEAD, EYES, EARS, NOSE, AND THROAT: Showed normocephalic, atraumatic. NECK: Supple. HEART: Showed normal first and second heart sounds. No gallop, rub or murmur. CHEST: Showed central trachea, equal bilateral chest expansion, air entry, vesicular sounds. No crepitation or rhonchi. ABDOMEN: Distended, soft, nontender. NEUROLOGIC: He is grossly intact. His intake over the last 24 hours was 1500, no output was recorded. LABORATORY DATA: His most recent D-dimer was 0.64, hemoglobin 13, hematocrit 39 with a white cell count 14,900 and platelets 104. His chemistry is unremarkable except slightly elevated AST, ALT. ASSESSMENT: 1. Recent COVID pneumonia with possible lung injury. 2. Bilateral atypical pneumonia. 3. Chronic interstitial lung disease. 4. Hypertension. 5. Hyperlipidemia. PLAN: To continue antibiotic. Continue with steroids. Continue with DVT prophylaxis. We will do a 6-minute walk tomorrow to qualify him for his likelihood that probably will require oxygen at least for the foreseeable future. RADHA OLIVEROS MD DR: BOLA/rene JOB#: [id number] / [id number]
[2020-05-08] MEDS: ENOXAPARIN 40 MG/0.4 ML SYRINGE. SQ SCH (18:42)
[2020-05-08 18:43] VITALS: BP 135/75
[2020-05-08] MEDS: AZITHROMYCIN 500 MG in IV NORMAL SALINE 250ML 250 ML IV SCH (21:00)
[2020-05-08] MEDS: ATORVASTATIN CALCIUM 20 MG TABLET PO SCH (22:11)
[2020-05-08] MEDS: diphenhydrAMINE HCL 25 MG CAPSULE PO PRN (22:12)
[2020-05-08] MEDS: TAMSULOSIN 0.4 MG CAP.ER.24H. PO SCH (22:12)
[2020-05-08] MEDS: FINASTERIDE 5 MG TABLET. PO SCH (22:12)
[2020-05-08 23:17] VITALS: BP 151/86
[2020-05-09 08:00] VITALS: BP 138/77
[2020-05-09 08:02] LABS: HEMATOCRIT 39.8 % (39.0-53.0); HEMOGLOBIN 13.1 g/dL (13.0-17.5); RED BLOOD COUNT 4.37 x10^6/uL (4.30-5.70); RED CELL DISTRIBUTION WIDTH 13.2 % (11.5-14.5); WHITE BLOOD COUNT 16.4 x10^3/uL (4.0-11.0)
[2020-05-09] MEDS: LACTOBACILLUS RHAMNOSUS GG 1 CAPSULE. PO SCH ×2 (08:39→21:04)
[2020-05-09] MEDS: CHOLECALCIFEROL (VITAMIN D3) 1,000 UNIT TABLET PO SCH (08:39)
[2020-05-09] MEDS: MULTIVITAMIN with MINERAL TABLET. PO SCH (08:40)
[2020-05-09] MEDS: CETIRIZINE HCL 10 MG TABLET PO SCH (08:40)
[2020-05-09] MEDS: CYANOCOBALAMIN (VITAMIN B-12) 1,000 MCG TABLET. PO SCH (08:41)
[2020-05-09] MEDS: DEXAMETHASONE SOD PHOS 10 MG/ML VIAL. IV SCH (08:41)
[2020-05-09] MEDS: PSYLLIUM SEED (WITH SUGAR) PACKET. PO SCH ×2 (08:42→21:03)
[2020-05-09] MEDS: IPRATROPIUM/ALBUTEROL 20/100mcg/INH INHALER. INH SCH ×4 (09:54→20:00)
[2020-05-09] MEDS: ASPIRIN CHEWABLE 81 MG TABLET. PO SCH (09:54)
[2020-05-09 11:00] VITALS: BP 132/79
[2020-05-09 13:46] LABS: ALBUMIN 2.7 g/dL (3.4-5.0); ALBUMIN/GLOBULIN RATIO 0.8 (1.0-1.7); CREATININE 0.9 mg/dL (0.7-1.3); GFR 82.9; TOTAL BILIRUBIN 0.8 mg/dL (0.2-1.0); TOTAL PROTEIN 6.3 g/dL (6.4-8.2)
[2020-05-09 13:47] LABS: POTASSIUM 4.5 mmol/L (3.5-5.1)
[2020-05-09 15:00] VITALS: BP 126/82
--- NOTE | 2020-05-09 16:31 | PN ---
DATE: 05/09/2020 SUBJECTIVE: The patient is resting, slightly propped up in bed, in no apparent distress. He feels slightly better today. His oxygen saturation is 95% on 2 liters of oxygen at rest. He continued to desaturate on exertion and without oxygen. OBJECTIVE: GENERAL: When I examined him, he looked well and was clearly in no apparent distress at rest, however, he continued to pause and unable to finish sentences, although he is slightly better. There was no pallor, jaundice, cyanosis or thyromegaly. No jugular venous distention. No limb edema. VITAL SIGNS: His heart rate was 80, blood pressure was 132/79, temperature was 97.1, respiratory rate 20, and oxygen saturation was 93% on 2 liters of oxygen. HEAD, EYES, EARS, NOSE AND THROAT: Normocephalic, atraumatic. NECK: Supple. HEART: Showed normal first and second heart sounds. No gallop, rub or murmur. CHEST: Clear to auscultation. No crepitation or rhonchi. ABDOMEN: Distended, soft, nontender. NEUROLOGIC: He is awake, alert, responding appropriately. All cranial nerves are intact. He ambulates without assistance or assistive devices. LABORATORY DATA: His lab work this morning showed a white cell count of 16,400, hemoglobin 13, hematocrit 39, MCV 91, and platelet count 378,000. His serum sodium was 137, potassium 4.8, chloride 103, bicarbonate 24, anion gap of 10, BUN 22, creatinine 0.9, estimated GFR was 83 mL per minute, his glucose 138, calcium was 8.7. Total bilirubin and alkaline phosphatase were normal. AST, ALT slightly elevated. His D-dimer was down further to 0.45. His coronavirus PCR was not detectable and influenza A and B were negative. His CT angio showed diffuse bilateral interstitial and alveolar opacities, pneumonia suspected. He has no evidence of pulmonary embolism. ASSESSMENT: 1. Recent COVID pneumonia with possible lung injury. 2. Bilateral atypical pneumonia. 3. Chronic interstitial lung disease. 4. Hypertension. 5. Hyperlipidemia. PLAN: I will discontinue his Zithromax. I will switch his ceftriaxone to cefdinir and dexamethasone to be given orally and I will do 6-minute walk and will be discharged home tomorrow hopefully with home oxygen. I will also arrange for him to be seen by Dr. East as an outpatient in his clinic at [facility] for followup in 2 weeks time. RADHA OLIVEROS MD DR: BOLA/rene JOB#: [id number] / [id number]
[2020-05-09] MEDS: ENOXAPARIN 40 MG/0.4 ML SYRINGE. SQ SCH (18:01)
[2020-05-09 18:10] VITALS: BP 149/86
[2020-05-09] MEDS: FINASTERIDE 5 MG TABLET. PO SCH (21:04)
[2020-05-09] MEDS: TAMSULOSIN 0.4 MG CAP.ER.24H. PO SCH (21:04)
[2020-05-09] MEDS: ATORVASTATIN CALCIUM 20 MG TABLET PO SCH (21:04)
[2020-05-09] MEDS: CEFDINIR 300 MG CAPSULE PO SCH (21:04)
[2020-05-09 23:21] VITALS: BP 137/79
[2020-05-10 06:37] LABS: CALCIUM 8.4 mg/dL (8.5-10.1); GFR 73.5; HEMATOCRIT 39.6 % (39.0-53.0); HEMOGLOBIN 13.2 g/dL (13.0-17.5); POTASSIUM 4.8 mmol/L (3.5-5.1); RED BLOOD COUNT 4.38 x10^6/uL (4.30-5.70); RED CELL DISTRIBUTION WIDTH 13.4 % (11.5-14.5); WHITE BLOOD COUNT 19.3 x10^3/uL (4.0-11.0)
[2020-05-10 07:27] VITALS: BP 118/81
[2020-05-10] MEDS: ASPIRIN CHEWABLE 81 MG TABLET. PO SCH (08:34)
[2020-05-10] MEDS: CHOLECALCIFEROL (VITAMIN D3) 1,000 UNIT TABLET PO SCH (08:37)
[2020-05-10] MEDS: CEFDINIR 300 MG CAPSULE PO SCH (08:37)
[2020-05-10] MEDS: MULTIVITAMIN with MINERAL TABLET. PO SCH (08:37)
[2020-05-10] MEDS: CYANOCOBALAMIN (VITAMIN B-12) 1,000 MCG TABLET. PO SCH (08:37)
[2020-05-10] MEDS: CETIRIZINE HCL 10 MG TABLET PO SCH (08:37)
[2020-05-10] MEDS: IPRATROPIUM/ALBUTEROL 20/100mcg/INH INHALER. INH SCH ×2 (08:38→12:40)
[2020-05-10] MEDS: PSYLLIUM SEED (WITH SUGAR) PACKET. PO SCH (08:38)
[2020-05-10] MEDS: LACTOBACILLUS RHAMNOSUS GG 1 CAPSULE. PO SCH (08:38)
[2020-05-10] MEDS ORDERED: DEXAMETHASONE SOD PHOS 10 MG/ML VIAL. PO SCH (09:00)
[2020-05-10 10:41] VITALS: BP 132/77
[2020-05-10] MEDS ORDERED: CEFD300C PO (11:04)
[2020-05-10] MEDS ORDERED: AZIT250T PO (11:04)
[2020-05-10] MEDS ORDERED: DEXA6TAB PO (11:06)
--- NOTE | 2020-05-10 12:03 | DS ---
DATE OF DISCHARGE: 05/10/2020 HOSPITAL COURSE: The patient is a 74-year-old male patient who was admitted through the Emergency Room to [facility] with worsening shortness of breath. On the day of admission, he tested positive about 11 days prior to that. His chest x-ray demonstrated chronic interstitial changes as well as new diffuse interstitial ground glass appearance in both base. The patient was admitted with suspected coronavirus pneumonia. He was started on IV antibiotic and steroids. Subsequent investigation showed that his coronavirus by PCR was not detectable. His influenza A and B were negative. His D-dimer was slightly high at 0.69 and he was treated with dexamethasone together with cefdinir and Zithromax as well as Lovenox together with all his other medications. The patient continues to have some shortness of breath and desaturates on exertion. We did a 6-minute walk and he required 3 liters of oxygen to maintain his oxygen saturation more than 92%. As he remained stable, a decision was made to discharge him home to continue a tapering course of steroids to finish his antibiotic treatment and to go on home oxygen. He will have a concentrator and also portable oxygen tank. We have also made an appointment for him to be seen by the retail loss prevention specialist at [facility]. PHYSICAL EXAMINATION: GENERAL: When I saw him today, he looked well and was clearly in no apparent respiratory distress. There was no pallor, jaundice, cyanosis or thyromegaly. No jugular venous distention. No lower limb edema. VITAL SIGNS: His heart rate was 81, blood pressure was 132/77, temperature was 98.2, respiratory rate was 22 and oxygen saturation was 94% on 3 liters of oxygen. HEAD, EYES, EARS, NOSE AND THROAT: Showed normocephalic and atraumatic. NECK: Supple. HEART: Showed normal first and second heart sounds. No gallop, rub or murmur. CHEST: Shows central trachea, equal bilateral chest expansion, air entry. I could not really appreciate any crepitation or rhonchi. ABDOMEN: Distended, soft, nontender. NEUROLOGIC: He is grossly intact. LABORATORY DATA: As of this morning, his white cell count was 19,300; hemoglobin 13; hematocrit 39; MCV 90 and platelet count 344,000. Serum sodium was 134, potassium 4.8, chloride 102, bicarbonate 22, anion gap of 10, BUN 24, creatinine 1, estimated GFR was 73 mL per minute. His glucose 122, calcium was 8.4. His total bilirubin and alkaline phosphatase is normal. AST and ALT were trending down. In fact, his AST was normal and there is an ALT came down from 226 down to 179. Total protein was 6.3, albumin was 2.7. His BNP was only 90. His most recent D-dimer was down to 0.45 from 0.69. His coronavirus by PCR was not detectable. His influenza A and B were negative. DISCHARGE MEDICATIONS: He was discharged home to continue on Zithromax 250 mg once a day for 3 more days, cefdinir 300 mg twice a day for 7 days, and dexamethasone on tapering fashion 6 mg once a day for 3 days, 4 mg once a day for 3 days, and 2 mg once a day for 3 days. He should continue on his aspirin 81 mg once a day, Tylenol 1000 mg every 6 hours as needed, atorvastatin calcium 40 mg at bedtime, carvedilol 6.25 mg twice a day, cholecalciferol (vitamin D3) 50 mcg capsules once a day, cyanocobalamin 500 mcg once a day, cyclobenzaprine 10 mg 3 times a day, diltiazem 180 mg daily, finasteride 5 mg at bedtime, loratadine/pseudoephedrine was discontinued, multivitamin 1 tablet once a day, Psyllium husk (Metamucil) 0.52 g p.o. b.i.d., and tamsulosin 0.4 mg at bedtime. FINAL DISCHARGE DIAGNOSES: 1. Acute hypoxic respiratory failure. 2. Recent COVID-19 pneumonia with possible viral induced lung injury. 3. Bilateral atypical pneumonia. 4. Chronic interstitial lung disease. 5. Hypertension. 6. Hyperlipidemia. to Esteban Roland as well as Dr. Riggins, the retail loss prevention specialist at [facility]. RADHA OLIVEROS MD DR: BOLA/rene JOB#: [id number] / [id number] TAMMY Blum MD, GALEN MD
== END 2020-05-10 14:25 | disposition home health service (06) | DRG 177 ==
LOC: 1 SOUTH 17:30
PROVIDERS: ADMIT Hospitalist; ATTEND Internal Medicine
DX: U07.1 COVID-19 (principal); J12.82 Pneumonia due to coronavirus disease 2019; J96.01 Acute respiratory failure with hypoxia; E78.5 Hyperlipidemia, unspecified; I11.0 Hypertensive heart disease with heart failure; I35.0 Nonrheumatic aortic (valve) stenosis; I50.9 Heart failure, unspecified; J84.89 Other specified interstitial pulmonary diseases; N40.0 Benign prostatic hyperplasia without lower urinary tract symptoms; Z82.49 Family history of ischemic heart disease and other diseases of the circulatory system; Z79.899 Other long term (current) drug therapy; Z90.49 Acquired absence of other specified parts of digestive tract
CPT/HCPCS: 36415; 71045; 71046; 71275; 80048; 80053; 83880; 85007; 85025; 85027; 85379; 86140; 87040; 87804; 94618; J0456; J0696; J1100; J1650; J7050; Q0163; Q9967; U0003

== ENCOUNTER → 2020-07-09 | Outpatient (CLI) | payer MEDICARE, OTHER ==
[~2020-07-09] MED LIST: ACET325T9 PO; ASPI-630 PO; ATOR40TA PO; AZIT250T PO; CARV6.25 PO; CEFD300C PO; CHOL200044 PO; CYAN500T17 PO; CYCL-331 PO; DEXA6TAB PO; DILT180T7 PO; FINA5TAB PO; GUAI-108 PO; LORA-627 PO; MULT-245 PO; PSYL0.5215 PO; TAMS0.4C97 PO
--- NOTE | 2020-07-09 12:19 | RAD ---
EXAM: Chest CT without intravenous contrast. HISTORY: Covid-19 pneumonia follow-up. TECHNIQUE: Computed tomographic images of the chest were obtained without contrast. Multiplanar refor matting was performed. *One or more of the following individualized dose reduction techniques were utilized for this examina tion: 1. Automated exposure control. 2. Adjustment of the mA and/or kV according to patient size. 3. Use of iterative reconstruction technique. COMPARISON: 05/06/2020. FINDINGS: There has been interval decrease in previously demonstrated multifocal infiltrate. There is residual groundglass infiltrate in a predominantly peripheral distribution throughout both lungs. No residual consolidation is seen. There is no pleural effusion or pneumothorax. There is a stable 4 mm nodule at the right lung base. There are a few calcified granulomas. The heart is normal in size. There is calcification of the aortic valve. There is no lymphadenopathy. There is stable tiny hypodense lesions within the liver, too small to characterize. The gallbladder is surgically absent. There is partial visualization of a prominent left renal pelvis, possibly due t o an extrarenal pelvis. There are degenerative changes throughout the spine. There is thoracic scolio sis. There is mild chronic loss of vertebral body height at the mid thoracic levels. There are benign osseous hemangiomas. IMPRESSION: 1. Decrease in previously demonstrated multifocal infiltrate. There is residual groundglass infiltrat e throughout both lungs in a predominantly peripheral distribution. Continued follow-up is recommende d to confirm complete resolution. 2. Stable 4 mm nodule within the right lung base. Is degenerative time of follow-up is recommended. 3. Stable ill-defined hypodense lesions within the liver. In the absence of known malignancy, these a re likely cysts or hemangiomas. 4. Calcification of the aortic valve. Electronically signed by: Karli Leroy MD (07/09/2020 12:17 PM) [id number]
== END ==
LOC: CT 10:12
PROVIDERS: ATTEND Internal Medicine Critical Care Medicine
DX: R91.1 Solitary pulmonary nodule (principal); J18.9 Pneumonia, unspecified organism; I25.10 Atherosclerotic heart disease of native coronary artery without angina pectoris; K76.9 Liver disease, unspecified
CPT/HCPCS: 71250

== ENCOUNTER → 2020-12-08 | Outpatient (CLI) | payer MEDICARE, OTHER ==
--- NOTE | 2020-12-08 10:24 | RAD ---
PQRS Compliance Statement: One or more of the following individualized dose reduction techniques were utilized for this examinat ion: 1. Automated exposure control 2. Adjustment of the mA and/or kV according to patient size 3. Use of iterative reconstruction technique CT THORAX WO 12/08/2020 9:51 AM Indication: COVID pneumonia in April COMPARISON: None available. TECHNIQUE: Multiple axial CT images of the chest were obtained without intravenous contrast. Coronal and sagittal reformats are provided. FINDINGS: Near complete resolution of consolidative changes along the subpleural distribution of the upper and lower lobes when compared to prior examination from 05/06/2020. Subpleural groundglass opacities with lower lung zone predominance appear marginally improved since 07/09/2020. There is minimal residual ret icular interstitial thickening. Mild bronchial wall thickening suggestive of nonspecific bronchitis. No new or enlarging solid noncalcified pulmonary nodules. 4 mm solid noncalcified pulmonary nodule id entified at the right lung base (series 2, image 77), stable. Stable calcified granuloma along the velásquez bpleural left lower lobe measuring 3 mm. 2 mm solid noncalcified pulmonary nodule in the left costoph renic angle is stable (series 2, image 74). No pleural effusions, pulmonary vascular congestion or pn eumothorax. Thyroid gland is normal in appearance. Heart size within normal limits. Thoracic aorta is normal in course and caliber. Calcific effusions are identified at the aortic root. Three-vessel cor onary artery vascular calcific effusions are present. Calcified mediastinal and left hilar lymph node s suggest sequela prior granulomatous exposure. Gallbladder surgically absent. Versus portions of the upper abdomen are otherwise normal. No suspicious osseous abnormality is identified. Osseous hemangi nila is identified at T9. IMPRESSION: There is improving aeration of the lungs as compared to prior examination from 07/09/2020 and 05/06/2020 suggestive of resolving pneumonitis. Minimal residual groundglass changes are identified with lower lung zone predominance. Minimal residual subpleural reticular interstitial changes could reflect scar ring. Stable solid noncalcified pulmonary nodule in the right costophrenic angle measuring 4 mm. Fleischner guidelines for incidentally detected pulmonary nodules suggests no routine follow-up for low risk pa tients and optional CT at 12 months for high risk patients with solid noncalcified pulmonary nodules less than 6 mm in size. Electronically signed by: Deanne Rdz MD (12/08/2020 10:21 AM) [id number]
== END ==
LOC: CT 09:27
PROVIDERS: ATTEND Internal Medicine Critical Care Medicine
DX: R91.1 Solitary pulmonary nodule (principal); I70.0 Atherosclerosis of aorta; Z90.49 Acquired absence of other specified parts of digestive tract
CPT/HCPCS: 71250